=== PATIENT | born 1990 | race Caucasian/White ===

== ENCOUNTER 2020-12-20 10:36 | Emergency (ER) | payer OTHER ==
[~2020-12-20] VITALS: Ht 167.6 cm; Wt 78.0 kg
[2020-12-20] MEDS ORDERED: METF-874 PO (10:44)
[2020-12-20] MEDS ORDERED: OMEG100016 PO (10:44)
[2020-12-20] MEDS ORDERED: SPIR100T5 PO (10:44)
[2020-12-20] MEDS ORDERED: DICYCLOMINE 10 MG/5 ML ORAL SYR PO STA (10:48)
[2020-12-20] MEDS ORDERED: MAGNESIUM/ALUMINUM HYDROXIDE/SIMETHICONE 30ML UDC PO STA (10:48)
[2020-12-20] MEDS ORDERED: ONDANSETRON 4MG ODT PO STA (10:48)
[2020-12-20 11:07] LABS: BASOPHILS % 0.2 % (0.0-2.0); HEMATOCRIT. 40.3 %; HEMOGLOBIN. 13.7 g/dL; LYMPHOCYTES % 7.9 %; MEAN CORPUSCULAR HEMOGLOBIN 30.7 pg; MEAN PLATELET VOLUME 8.6 fl (7.4-10.4); MONOCYTES % 2.6 % (2.0-8.0); NEUTROPHILS % 89.3 %; PLATELET 205 x1000/uL (130-400); RED BLOOD CELL COUNT 4.48 mill/uL; RED CELL DISTRIBUTION WIDTH 13.6 % (11.6-14.6)
[2020-12-20 11:14] LABS: CHLORIDE 102 mEq/L
[2020-12-20 11:19] LABS: ETHANOL BLOOD < 10 mg/dL
[2020-12-20 11:20] LABS: PROTHROMBIN TIME 10.5 sec (9.6-11.0)
[2020-12-20 11:23] LABS: HCG SCREEN NEGATIVE
[2020-12-20 12:21] LABS: CLARITY URINE CLEAR (CLEAR); COLOR URINE YELLOW (YELLOW); KETONES URINE 3+ (NEGATIVE); LEUKOCYTE ESTERASE URINE NEGATIVE (NEGATIVE); NITRITE URINE NEGATIVE (NEGATIVE); OCCULT BLOOD URINE NEGATIVE (NEGATIVE); PH URINE 6.5 (4.5-8.0); PROTEIN URINE NEGATIVE (NEGATIVE); UROBILINOGEN URINE 0.2 E.U./dL (0.2-1.0)
[2020-12-20 12:40] LABS: *AMPHETAMINES SCREEN URINE NEGATIVE (NEGATIVE); *BARBITURATES SCREEN URINE NEGATIVE (NEGATIVE); *BENZODIAZEPINES SCREEN URINE NEGATIVE (NEGATIVE); METHADONE URINE SCREEN NEGATIVE (NEGATIVE)
[2020-12-20 12:41] LABS: *COCAINE SCREEN URINE NEGATIVE (NEGATIVE); CANNABINOID URINE SCREEN NEGATIVE (NEGATIVE); OPIATES URINE SCREEN NEGATIVE (NEGATIVE); PHENCYCLIDINE URINE SCREEN NEGATIVE (NEGATIVE)
[2020-12-20] MEDS ORDERED: ONDANSETRON HCL 4MG/2ML INJ IV ONE (13:00)
[2020-12-20] MEDS ORDERED: MORPHINE SULFATE 4 MG/ML CPJ (NOT FOR IM USE) IV ONE ×2 (13:00→14:30)
[2020-12-20] MEDS ORDERED: ACETAMINOPHEN 325MG TABLET PO ONE (15:00)
[2020-12-20 16:01] VITALS: BP 128/88
== END 2020-12-20 16:36 | disposition home or self-care (01) ==
LOC: ER 10:36
DX: K80.20 Calculus of gallbladder without cholecystitis without obstruction (principal); E11.9 Type 2 diabetes mellitus without complications
CPT/HCPCS: 36415; 71045; 76700; 80053; 80305; 80320; 81003; 83605; 83690; 84484; 84703; 85025; 85610; 93005; 96374; 96375; 96376; 99285; J2270; J2405; Q0162; G0480

== ENCOUNTER 2021-01-07 09:41 | Emergency (ER) | payer MEDICAID, OTHER ==
[~2021-01-07] VITALS: Ht 170.2 cm; Wt 75.0 kg
[~2021-01-07 09:41] MED LIST: METF-874 PO; OMEG100016 PO; SPIR100T5 PO
[2021-01-07] MEDS ORDERED: KETOROLAC 30MG/ML VIAL IV STA (10:29)
[2021-01-07] MEDS ORDERED: SODIUM CHLORIDE 0.9% 1,000 ML IV ONE (10:30)
[2021-01-07 10:53] LABS: HEMATOCRIT. 39.2 %; HEMOGLOBIN. 13.1 g/dL; MEAN CORPUSCULAR HEMOGLOBIN 30.6 pg; MEAN CORPUSCULAR VOLUME 91.2 fL; MEAN PLATELET VOLUME 8.8 fl (7.4-10.4); PLATELET 227 x1000/uL (130-400); RED BLOOD CELL COUNT 4.29 mill/uL; RED CELL DISTRIBUTION WIDTH 13.4 % (11.6-14.6)
[2021-01-07 10:57] LABS: CHLORIDE 98 mEq/L
[2021-01-07 11:05] LABS: PROTHROMBIN TIME 11.2 sec (9.6-11.0)
[2021-01-07 11:14] LABS: CLARITY URINE CLOUDY (CLEAR); COLOR URINE DARK YELLOW (YELLOW); KETONES URINE 3+ (NEGATIVE); LEUKOCYTE ESTERASE URINE 1+ (NEGATIVE); NITRITE URINE POSITIVE (NEGATIVE); OCCULT BLOOD URINE NEGATIVE (NEGATIVE); PH URINE 5.5 (4.5-8.0); PROTEIN URINE 1+ (NEGATIVE); SPECIFIC GRAVITY URINE 1.039 (1.005-1.030)
[2021-01-07 12:14] LABS: PLATELET ESTIMATE NORMAL
[2021-01-07] MEDS ORDERED: IBUP-2029 MT (12:54)
[2021-01-07] MEDS ORDERED: CEPH500C2 MT (12:57)
[2021-01-07 13:00] VITALS: BP 97/58
== END 2021-01-07 13:13 | disposition home or self-care (01) ==
LOC: ER 09:50
DX: K80.50 Calculus of bile duct without cholangitis or cholecystitis without obstruction (principal); N30.90 Cystitis, unspecified without hematuria; E11.9 Type 2 diabetes mellitus without complications; Z87.19 Personal history of other diseases of the digestive system
CPT/HCPCS: 36415; 76705; 80053; 81003; 83690; 85025; 85610; 93005; 96361; 96374; 99285; J1885; J7030